=== PATIENT | female | born 1935 | race Caucasian/White ===

== ENCOUNTER 2017-11-01 14:23 | Inpatient (IN) | payer MEDICARE, OTHER ==
[2017-11-01 15:05] LABS: ADD MAN DIFF? NO
[2017-11-01] MEDS: LORAZEPAM 2 MG INJ IV ×2 (15:05→23:22)
[2017-11-01] MEDS: SOD CHLORIDE 0.9% 500 ML IV (15:05)
[2017-11-01 15:14] LABS: WHITE BLOOD COUNT 8.5 10^3/ul (4.8-10.8)
[2017-11-01 15:14] LABS: BASOPHIL # 0.1 10^3/ul (0.0-0.1); BASOPHILS % 0.6 % (0.0-2.0); EOSINOPHILS # 0.1 10^3/ul (0.0-0.5); EOSINOPHILS % 1.6 % (0.0-7.0); HEMATOCRIT 38.9 % (37.0-47.0); HEMOGLOBIN 13.5 g/dl (12.0-16.0); LYMPHOCYTES # 1.5 10^3/ul (0.8-2.9); LYMPHOCYTES % 17.2 % (15.0-51.0); MEAN CORPUSCULAR HEMOGLOBIN 29.9 pg (29.0-33.0); MEAN CORPUSCULAR HGB CONC 34.7 g/dl (32.0-37.0); MEAN CORPUSCULAR VOLUME 86.1 fl (82.0-101.0); MEAN PLATELET VOLUME 9.8 fl (7.4-10.4); MONOCYTE # 0.6 10^3/ul (0.3-0.9); MONOCYTES % 7.5 % (0.0-11.0); NEUTROPHIL # 6.2 10^3/ul (1.6-7.5); NEUTROPHILS % 72.7 % (39.0-77.0); PLATELET COUNT 242 10^3/UL (140-415); RED BLOOD COUNT 4.52 10^6/ul (4.20-5.40); RED CELL DISTRIBUTION WIDTH 12.6 % (11.5-14.5)
[2017-11-01 16:42] LABS: ANION GAP 17 (8-16); BLOOD UREA NITROGEN 16 mg/dl (7-20); CALCIUM 8.6 mg/dl (8.4-10.2); CARBON DIOXIDE 20 mmol/L (21-31); CHLORIDE 106 mmol/L (97-110); CREATININE 0.88 mg/dl (0.44-1.00); GLUCOSE 119 mg/dl (70-220); SODIUM 140 mmol/L (135-144)
[2017-11-01 16:46] LABS: POTASSIUM 2.9 mmol/L (3.5-5.1)
[2017-11-01 17:37] LABS: ADD UMIC YES; UR ASCORBIC ACID NEGATIVE (NEGATIVE); UR BILIRUBIN (Dip) NEGATIVE (NEGATIVE); UR BLOOD (Dip) 1+ mg/dL (NEGATIVE); UR CLARITY CLEAR (CLEAR); UR COLOR STRAW (YELLOW); UR GLUCOSE (Dip) NEGATIVE (NEGATIVE); UR KETONES (Dip) NEGATIVE (NEGATIVE); UR LEUKOCYTE ESTERASE (Dip) NEGATIVE Leu/ul (NEGATIVE); UR NITRITE (Dip) NEGATIVE (NEGATIVE); UR RBC 0 /HPF (0-5); UR SPECIFIC GRAVITY (Dip) 1.004 (1.003-1.030); UR TOTAL PROTEIN (Dip) NEGATIVE (NEGATIVE); UR UROBILINOGEN (Dip) NEGATIVE (NEGATIVE); UR WBC 5 /HPF (0-5)
[2017-11-01] MEDS: MAGNESIUM SULFATE 1 GM/D5W 100 ML IVPB (17:48)
[2017-11-01] MEDS: POTASSIUM CHLORIDE 100 ML IVPB ×2 (18:50→23:34)
[2017-11-01] MEDS ORDERED: morphine 2 MG INJ IV (19:00)
[2017-11-01] MEDS ORDERED: ALBUTEROL/IPRATROPIUM (NEB) 3 ML AMP HHN (19:00)
[2017-11-01] MEDS ORDERED: HYDROCODONE/APAP (5/325) TAB PO (19:00)
[2017-11-01] MEDS ORDERED: NITROGLYCERIN (SL) 0.4 MG TAB SL (19:00)
[2017-11-01] MEDS ORDERED: MAGNESIUM HYDROXIDE 30ML CUP PO (19:00)
[2017-11-01] MEDS ORDERED: DOCUSATE SODIUM 100 MG CAP PO (19:00)
[2017-11-01] MEDS ORDERED: ACETAMINOPHEN 325 MG TAB PO (19:00)
[2017-11-01] MEDS ORDERED: NA PHOSPHATE/BIPHOS 133 ML ENEMA PR (19:00)
[2017-11-01] MEDS ORDERED: MECLIZINE 25 MG TAB PO (19:00)
[2017-11-01] MEDS ORDERED: ONDANSETRON 4 MG INJ IV (19:00)
[2017-11-01] MEDS ORDERED: hydrALAzine 20 MG INJ IV (19:00)
[2017-11-01] MEDS ORDERED: traMADol 50 MG TAB PO (19:00)
[2017-11-01] MEDS ORDERED: NACL 0.9% 3 ML SYG IV (19:00)
[2017-11-01] MEDS: SOD CHLORIDE 0.45% 1,000 ML IV (19:11)
[2017-11-01] MEDS: SOD CHLORIDE 0.9% 1,000 ML IV (19:11)
[2017-11-01 19:28] LABS: LACTIC ACID 1.8 mmol/L (0.5-2.0)
[2017-11-01 20:12] LABS: FREE T4 (FREE THYROXINE) 1.32 ng/dl (0.85-1.93)
[2017-11-01 20:22] LABS: CREATINE KINASE 167 IU/L (23-200)
[2017-11-01 20:23] LABS: ANION GAP 13 (8-16); BLOOD UREA NITROGEN 13 mg/dl (7-20); CALCIUM 8.4 mg/dl (8.4-10.2); CARBON DIOXIDE 22 mmol/L (21-31); CHLORIDE 109 mmol/L (97-110); CREATININE 0.78 mg/dl (0.44-1.00); GLUCOSE 101 mg/dl (70-220); POTASSIUM 3.2 mmol/L (3.5-5.1); SODIUM 141 mmol/L (135-144)
[2017-11-01 20:34] LABS: CK INDEX 1.7; CK-MB 2.88 ng/ml (0.0-2.4); TROPONIN-I < 0.010 ng/ml (0.000-0.120)
[2017-11-01] MEDS: ATORVASTATIN 20 MG TAB PO (23:21)
[2017-11-01] MEDS: FISH OIL 1,000 MG CAP PO (23:21)
[2017-11-01] MEDS: GABAPENTIN 300 MG CAP PO (23:22)
[2017-11-01] MEDS: HEPARIN 5,000 UNIT/0.5 ML VIAL SC (23:33)
[2017-11-02 01:51] LABS: CREATINE KINASE 175 IU/L (23-200)
[2017-11-02 01:54] LABS: LACTIC ACID 1.1 mmol/L (0.5-2.0)
[2017-11-02 01:58] LABS: CK-MB 3.53 ng/ml (0.0-2.4); TROPONIN-I < 0.010 ng/ml (0.000-0.120)
[2017-11-02] MEDS: POTASSIUM CHLORIDE 100 ML IVPB ×2 (04:24→08:34)
[2017-11-02] MEDS: PANTOPRAZOLE (EC) 40 MG TAB PO (05:56)
[2017-11-02 06:23] LABS: ADD MAN DIFF? NO
[2017-11-02 06:30] LABS: BASOPHIL # 0.1 10^3/ul (0.0-0.1); BASOPHILS % 0.8 % (0.0-2.0); EOSINOPHILS # 0.3 10^3/ul (0.0-0.5); EOSINOPHILS % 5.2 % (0.0-7.0); HEMATOCRIT 37.3 % (37.0-47.0); HEMOGLOBIN 12.7 g/dl (12.0-16.0); LYMPHOCYTES # 1.9 10^3/ul (0.8-2.9); LYMPHOCYTES % 29.4 % (15.0-51.0); MEAN CORPUSCULAR HEMOGLOBIN 30.2 pg (29.0-33.0); MEAN CORPUSCULAR VOLUME 88.6 fl (82.0-101.0); MEAN PLATELET VOLUME 9.8 fl (7.4-10.4); MONOCYTE # 0.5 10^3/ul (0.3-0.9); MONOCYTES % 7.6 % (0.0-11.0); NEUTROPHIL # 3.7 10^3/ul (1.6-7.5); NEUTROPHILS % 56.7 % (39.0-77.0); PLATELET COUNT 222 10^3/UL (140-415); RED BLOOD COUNT 4.21 10^6/ul (4.20-5.40); RED CELL DISTRIBUTION WIDTH 12.8 % (11.5-14.5)
[2017-11-02 06:30] LABS: WHITE BLOOD COUNT 6.6 10^3/ul (4.8-10.8)
[2017-11-02 06:38] LABS: LACTIC ACID 1.1 mmol/L (0.5-2.0)
[2017-11-02 06:55] LABS: ANION GAP 14 (8-16); BLOOD UREA NITROGEN 12 mg/dl (7-20); CALCIUM 8.1 mg/dl (8.4-10.2); CARBON DIOXIDE 23 mmol/L (21-31); CHLORIDE 110 mmol/L (97-110); CREATININE 0.76 mg/dl (0.44-1.00); GLUCOSE 98 mg/dl (70-220); POTASSIUM 3.6 mmol/L (3.5-5.1); SODIUM 143 mmol/L (135-144)
[2017-11-02 07:03] LABS: CHOLESTEROL 203 mg/dl (100-200)
[2017-11-02 07:03] LABS: CHOL/HDL RATIO 5.6 RATIO; HDL CHOLESTEROL 36 mg/dl (33-92); LDL CHOLESTEROL,CALCULATED 126 mg/dl; TRIGLYCERIDES 205 mg/dl (0-149)
[2017-11-02 07:32] LABS: HEMOGLOBIN A1C 5.5 % (0-5.9)
[2017-11-02] MEDS: SOD CHLORIDE 0.45% 1,000 ML IV (07:54)
[2017-11-02] MEDS: ASPIRIN 81 MG TAB PO (08:34)
[2017-11-02] MEDS: GABAPENTIN 300 MG CAP PO (08:34)
[2017-11-02] MEDS: DONEPEZIL 5 MG TAB PO (08:34)
[2017-11-02] MEDS: FISH OIL 1,000 MG CAP PO (08:34)
[2017-11-02] MEDS: HEPARIN 5,000 UNIT/0.5 ML VIAL SC (09:08)
[2017-11-05] MEDS ORDERED: ERGOCALCIFEROL 50,000 UNIT CAP PO (09:00)
== END 2017-11-02 12:40 | disposition home or self-care (01) | DRG 641 ==
LOC: E/R 14:23 → TEL 18:17
DX: E87.6 Hypokalemia (principal); R53.1 Weakness; R19.7 Diarrhea, unspecified; I10 Essential (primary) hypertension; E78.00 Pure hypercholesterolemia, unspecified
CPT/HCPCS: 80048; 80061; 81001; 82550; 82553; 83036; 83605; 83735; 84100; 84439; 84443; 84484; 85025; 93005; 96361; 96365; 96375; 97161; 97165; 99285-25